=== PATIENT | male | born 1955 | race Caucasian/White ===

== ENCOUNTER 2016-12-21 14:29 | Emergency (ER) | payer MEDICARE, MEDICAID ==
--- NOTE | 2016-12-21 14:51 | C.PDOC ---
History Of Present Illness Patient is a 61 year old male who presents to the ER with a complaint of decreased appetite, subjective fever/chills and malaise for the past month. Patient reports she had a liver transplant in 2008; she has been compliant with her medication and denies any complications with the transplant. Patient also reports to having symptoms of vomiting(unknown if bilious) and generalized abdominal pain. Patient states she has been self detoxing from oxycontin for the past 5 days but notes symptoms started prior to detox. Patient has a Hx of chronic lower back problems and myalgias; SHx of multi abdominal hernia repair, brain tumor and liver transplant. Denies fever, chills or distention at this moment. GO DECR APPETITE, SUBJ FEVER CHILLS, MALAISE X 1 MO. HO LIVER TRANSPLANT 2008, COMPLIANT W MEDS, STATES HAS BEEN DOING WELL W TRANSPLANT. +VOMIT, UNK IF BILIOUS. CURRENTLY W CHRONIC LBP, MYALGIA. IS SELF DETOXING FROM OXYCONTIN X 5 DAYS BUT STATES SX HAVE STARTED PRIOR TO DETOX. +GEN ABD PAIN. DENIES DISTENTION. +NORMAL URINE OUTPUT. NO FEVER. PSH MULT ABD HERNIA REPAIR, BRAIN TUMOR, LIVER TRANSPLANT. EXAM MOD DIST MILD TOX HEENT ANICTERIC; MM DRY; LEGALLY BLIND LUNGS CTA B/L NO W/R/R CV RRR ABD GEN TEND SOFT NO R/G SKIN NO JAUNDICE, WARM DRY NEURO AO3, NO GROSS FOCAL DEF MDM ABD PAIN, DECR APPETITE W VOMITING HO LIVER TRANSPLANT. RO ACUTE ABD VS NARCOTIC WITHDRAWAL VS SEPSIS. NO S/S ACUTE LIVER FAILURE @ THIS TIME. Time Seen by Provider: 12/21/16 14:31 History Per: Patient History/Exam Limitations: no limitations Onset/Duration Of Symptoms: Days (1 month) Current Symptoms Are (Timing): Still Present Recent travel outside of the [place]: No Past Medical History Reviewed: Historical Data, Nursing Documentation, Vital Signs Vital Signs: Last Vital Signs Temp 97.9 F 12/21/16 14:43 Pulse 78 12/21/16 17:00 Resp 18 12/21/16 17:00 BP 120/87 12/21/16 17:00 Pulse Ox 98 12/21/16 17:00 - Medical History PMH: Back Problems, Depression Other Surgeries: Multiabdominal hernia repair, liver transplant, brain tumor Family History: States: Unknown Family Hx - Social History Hx Tobacco Use: No Hx Alcohol Use: No Hx Substance Use: Yes Review Of Systems Except As Marked, All Systems Reviewed And Found Negative. Constitutional: Positive for: Malaise. Negative for: Fever, Chills Gastrointestinal: Positive for: Vomiting, Abdominal Pain Physical Exam - Physical Exam Appears: Non-toxic, Other (Moderate) Skin: Warm, Dry, Jaundice Head: Atraumatic, Normacephalic Eye(s): bilateral: Other (Anicteric, legally blind) Oral Mucosa: Dry Chest: Symmetrical, No Tenderness Cardiovascular: Rhythm Regular, No Murmur Respiratory: Normal Breath Sounds, No Rales, No Rhonchi, No Wheezing Gastrointestinal/Abdominal: Soft, Tenderness (Generalized), No Guarding, No Rebound Neurological/Psych: Oriented x3, Normal Speech, Normal Cognition, Other (No gross focal deficits) ED Course And Treatment - Laboratory Results Result Diagrams: 12/21/16 15:55 12/21/16 15:55 ECG: Interpreted By Me, Viewed By Me ECG Rhythm: Sinus Rhythm Interpretation Of EC - Radiology CXR: Interpreted by Me, Viewed By Me CXR Interpretation: Yes: No Acute Disease Progress Note: CT abd/pel w/ PO & IV contrast, EKG, blood work, CXR and urinalysis ordered. Zofran, potassium and IV fluids administered. Progress - Re-Evaluation Re-evaluation Note: 12/21/16 17:22 PERSIST NAUSEA. LIMITED PO CONTRAST. CT PENDING. VSS 12/21/16 18:44 EXAM IMPROVED COMPARED TO PRIOR. VSS. PENDING CT. - Data Reviewed Data Reviewed: Lab, Diagnostic imaging, EKG, Old records - Critical Care Citical Care: Excluding Proc Time Critical Care Time: 120 minutes - Continuity of Care Discussed patient case with:: Patient, Family-HIPPA compliant Medical Decision Making Medical Decision Making: MDM ABD PAIN, DECR APPETITE W VOMITING HO LIVER TRANSPLANT. RO ACUTE ABD VS NARCOTIC WITHDRAWAL VS SEPSIS. NO S/S ACUTE LIVER FAILURE @ THIS TIME. Disposition - Disposition Disposition Time: 19:00 Condition: STABLE - Clinical Impression Clinical Impression: Narcotic withdrawal, Chronic pain, Abdominal pain, Malaise, Hx of liver transplant - Scribe Statement The provider has reviewed the documentation as recorded by the Scribe Provider Attestation: Jose Corona All medical record entries made by the Scribe were at my direction and personally dictated by me. I have reviewed the chart and agree that the record accurately reflects my personal performance of the history, physical exam, medical decision making, and the department course for this patient. I have also personally directed, reviewed, and agree with the discharge instructions and disposition. Physician Patient Turnover Patient Signed Over To: Kalyani Gonsalez Handoff Comments: ELISA CRAIG
[2016-12-21] MEDS ORDERED: Iohexol 240 (50 ml) PO STA (14:54)
[2016-12-21] MEDS ORDERED: Sodium Chloride 0.9% 1,000 ML IV ONE (14:54)
[2016-12-21] MEDS ORDERED: Sodium Chloride 0.9% 1,000 ML ONE (15:13)
[2016-12-21 15:51] LABS: VENOUS BLOOD GAS BASE EXCESS -8.6 mmol/L (0.0-2.0); VENOUS BLOOD GAS PCO2 22 mmHg (40-60); VENOUS BLOOD PH 7.41 (7.32-7.43)
[2016-12-21 15:59] LABS: BASO % 0.1 % (0.0-2.0); EOS % 0.1 % (0.0-4.0); HEMATOCRIT 40.9 % (35.0-51.0); LYMPH # 1.3 K/uL (1.0-4.3); MEAN CELL VOLUME 81.5 fL (80.0-94.0); MEAN CORPUSCULAR HEMOGLOBIN 27.2 pg (27.0-31.0); MEAN CORPUSCULAR HGB CONC 33.4 g/dL (33.0-37.0); MEAN PLATELET VOLUME 6.6 fL (7.2-11.7); MONO # 0.4 K/uL (0.0-0.8); MONO % 5.2 % (0.0-10.0); NRBC % 0.1 % (0.0-2.0); RED CELL DISTRIBUTION WIDTH 14.9 % (11.5-14.5); WHITE BLOOD COUNT 7.4 K/uL (4.8-10.8)
[2016-12-21] MEDS ORDERED: Iohexol 240 (50 ml) PO ONE (16:00)
[2016-12-21] MEDS ORDERED: Iohexol 240 (50 ml) ONE (16:02)
[2016-12-21 16:08] LABS: INR 1.1
[2016-12-21] MEDS ORDERED: Iodixanol 320 MG/ML 100 ML BOTTLE IV ONE (16:18)
[2016-12-21 17:01] LABS: CHLORIDE 100 mmol/L (98-107); SODIUM 134 mmol/L (132-148)
[2016-12-21 17:02] LABS: POTASSIUM 3.9 mmol/L (3.6-5.2)
[2016-12-21 17:04] LABS: ALB/GLOB RATIO 1.1 (1.0-2.1); ALKALINE PHOSPHATASE 79 U/L (38-126); ALT/SGPT 29 U/L (21-72); AST/SGOT 36 U/L (17-59); BILIRUBIN,TOTAL 0.6 mg/dL (0.2-1.3); BLOOD UREA NITROGEN 12 mg/dL (9-20); CARBON DIOXIDE 25 mmol/L (22-30); GFR AFRICAN-AMERICAN > 60; GLUCOSE,RANDOM 110 mg/dL (75-110); TOTAL PROTEIN 7.3 g/dL (6.3-8.3)
--- NOTE | 2016-12-21 17:14 | RAD ---
PROCEDURE: CHEST RADIOGRAPH, 1 VIEW HISTORY: abd pain HO RENAL TRANSPLANT COMPARISON: 03/19/2012 FINDINGS: LUNGS: Clear. PLEURA: No pneumothorax or pleural fluid seen. CARDIOVASCULAR: Normal. OSSEOUS STRUCTURES: No significant abnormalities. VISUALIZED UPPER ABDOMEN: Normal. OTHER FINDINGS: None. IMPRESSION: No active disease.
[2016-12-21 19:22] VITALS: BP 143/91; PULSE 54; RESP 19; TEMP 97.4; O2SAT 100
--- NOTE | 2016-12-21 19:51 | CT ---
EXAM: CT Abdomen and Pelvis With Intravenous Contrast CLINICAL HISTORY: 61 years old, male; Pain; Abdominal pain; Generalized; Additional info: Abd pain RO obstruct ho liver transplant TECHNIQUE: Axial computed tomography images of the abdomen and pelvis with intravenous contrast. This CT exam was performed using one or more of the following dose reduction techniques: automated exposure control, adjustment of the mA and/or kV according to patient size, and/or use of iterative reconstruction technique. Coronal and sagittal reformatted images were created and reviewed. CONTRAST: 100 mL of visipaque administered intravenously. EXAM DATE/TIME: 12/21/2016 2:55 PM COMPARISON: No relevant prior studies available. FINDINGS: LOWER THORAX: No infiltrate seen in the lung bases. ABDOMEN: LIVER: Fatty infiltration of the liver. GALLBLADDER AND BILE DUCTS: Gallbladder is not seen, and may be contracted or surgically absent. PANCREAS: No CT evidence of acute pancreatitis. SPLEEN: No acute abnormality of the spleen identified. ADRENALS: No acute abnormality of the adrenal glands identified. KIDNEYS AND URETERS: Low density lesion in the left kidney, most likely a cyst. Tiny density lesion in the right kidney, most likely an angiomyolipoma. No acute abnormality of the kidneys identified. STOMACH AND BOWEL: The cecum is high and anterior in location, a normal variant. There is no evidence of volvulus or. Bowel is otherwise unremarkable in appearance. No evidence of bowel obstruction. No evidence of diverticulitis. APPENDIX: Appendix is seen, and is within normal limits in appearance. PELVIS: BLADDER: Mild thickening of the bladder wall. REPRODUCTIVE: No acute abnormality of the reproductive organs is seen. ABDOMEN and PELVIS: INTRAPERITONEAL SPACE: No evidence of free intraperitoneal air or fluid. BONES/JOINTS: Curvilinear areas of sclerosis in the femoral heads bilaterally, highly suspicious for avascular necrosis/osteonecrosis of the hips bilaterally. Scoliosis and multilevel degenerative changes of the spine. No acute fractures or other acute bony abnormality visualized. SOFT TISSUES: Fat-containing inguinal hernia on the left. Laxity of the right anterior abdominal wall musculature, most likely postoperative in etiology, secondary to scarring. No evidence of abdominal wall hernia containing bowel. VASCULATURE: Atherosclerotic calcification. No evidence of abdominal aortic aneurysm or dissection. LYMPH NODES: No evidence of diffuse lymphadenopathy. IMPRESSION: - Mild bladder wall thickening. This is a nonspecific finding, but can be seen with cystitis. Recommend clinical correlation. - Otherwise, no evidence of significant acute process. - Findings highly suspicious for avascular necrosis of the hips bilaterally. This finding can be seen in the setting of multiple underlying conditions, including steroid use and alcohol abuse. - See above for remaining findings.
== END 2016-12-21 20:18 | disposition left against medical advice (07) ==
LOC: C.ER 14:29
DX: R53.81 Other malaise (principal); R10.9 Unspecified abdominal pain; G89.29 Other chronic pain; F19.939 Other psychoactive substance use, unspecified with withdrawal, unspecified; Z94.4 Liver transplant status
CPT/HCPCS: 71010; 74177; 80053; 82803; 82948; 83690; 85025; 85610; 85730; 96361; 96372; 96374; 99285; J2405; J2550; J3480; J7040; Q9966; Q9967

== ENCOUNTER 2018-03-17 10:06 | Emergency (ER) | payer MEDICARE, MEDICAID ==
--- NOTE | 2018-03-17 10:57 | RAD ---
Date of service: 03/17/2018 PROCEDURE: CHEST RADIOGRAPH, 1 VIEW HISTORY: chest pain COMPARISON: 12/21/2016 FINDINGS: LUNGS: Clear. PLEURA: No pneumothorax or pleural fluid seen. CARDIOVASCULAR: Top-normal heart size. No pulmonary venous congestion appreciated. OSSEOUS STRUCTURES: Bilateral sclerotic changes both humeral heads-a superimposed avascular necrosis is a consideration. Similar appearance VISUALIZED UPPER ABDOMEN: Normal. OTHER FINDINGS: None. IMPRESSION: No acute cardiopulmonary pathology. Other findings as above.
[2018-03-17 11:14] LABS: BASO % 0.2 % (0.0-2.0); EOS # 0.1 K/uL (0.0-0.7); EOS % 1.1 % (0.0-4.0); HEMOGLOBIN 13.1 g/dL (12.0-18.0); LYMPH # 2.8 K/uL (1.0-4.3); LYMPH % 34.2 % (20.0-40.0); MEAN CORPUSCULAR HEMOGLOBIN 28.1 pg (27.0-31.0); MEAN CORPUSCULAR HGB CONC 33.4 g/dL (33.0-37.0); MONO # 0.6 K/uL (0.0-0.8); MONO % 7.4 % (0.0-10.0); NEUT # 4.6 K/uL (1.8-7.0); NEUT % 57.1 % (50.0-75.0); RBC 4.67 Mil/uL (4.40-5.90); WHITE BLOOD COUNT 8.1 K/uL (4.8-10.8)
[2018-03-17 11:32] LABS: ALB/GLOB RATIO 1.5 (1.0-2.1); ALBUMIN 4.4 g/dL (3.5-5.0); ALT/SGPT 25 U/L (21-72); AST/SGOT 27 U/L (17-59); BLOOD UREA NITROGEN 14 mg/dL (9-20); CALCIUM 9.5 mg/dl (8.6-10.4); GFR NON-AFRICAN AMERICAN > 60; LIPASE 38 U/L (23-300)
--- NOTE | 2018-03-17 11:49 | C.PDOC ---
History Of Present Illness <Martha Packer - Last Filed: 03/17/18 13:56> <Vince Brumfield - Last Filed: 03/18/18 07:20> 63 y/o male presents to the ER complaining of cough, congestion x 2 days. Patient states that he has history of back pain which he takes oxycondone. 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 He is requesting Oxycodone, he is diaphoretic and states he hasn't had his pain medication x 2 days. NO chest pain, no fever, no chills, no sick contacts at home. (+) hx of liver transplant and blindness. Otherwise, patient denies having fever, chills, SOB, nausea, and vomiting. (Vince Brumfield ) <Martha Packer M - Last Filed: 03/17/18 13:56> History Per: Patient History/Exam Limitations: no limitations Onset/Duration Of Symptoms: Days Current Symptoms Are (Timing): Still Present Severity: Moderate <Vince Brumfield Hanna - Last Filed: 03/18/18 07:20> Time Seen by Provider: 03/17/18 10:13 Chief Complaint (Nursing): Cough, Cold, Congestion Past Medical History - Medical History PMH: Back Problems, Depression, HTN, Hypothyroidism Family History: States: Unknown Family Hx - Social History Hx Tobacco Use: No Hx Alcohol Use: No Hx Substance Use: No - Immunization History Hx Tetanus Toxoid Vaccination: No Hx Influenza Vaccination: No Hx Pneumococcal Vaccination: No <Vince Brumfield M - Last Filed: 03/18/18 07:20> Vital Signs: Last Vital Signs Temp 97.3 F L 03/17/18 13:20 Pulse 74 03/17/18 15:20 Resp 18 03/17/18 15:20 BP 99/64 L 03/17/18 15:20 Pulse Ox 98 03/17/18 15:29 Review Of Systems Except As Marked, All Systems Reviewed And Found Negative. Constitutional: Positive for: Sweats. Negative for: Fever, Chills Cardiovascular: Positive for: Chest Pain Respiratory: Positive for: Cough. Negative for: Shortness of Breath <Vince Brumfield - Last Filed: 03/18/18 07:20> Physical Exam - Physical Exam Appears: Non-toxic, No Acute Distress Skin: Normal Color, Warm, Diaphoretic Head: Atraumatic, Normacephalic, Other (well healed sugical scar ) Eye(s): bilateral: Normal Inspection (blindness ) Nose: Normal Oral Mucosa: Moist Neck: Supple Chest: Symmetrical Cardiovascular: Rhythm Regular Respiratory: Normal Breath Sounds, No Rales, No Rhonchi, No Wheezing Gastrointestinal/Abdominal: Normal Exam, Soft, No Tenderness, No Guarding, No Rebound, Other (well healed surgical scar (+) nt, nd (+) bs ) Neurological/Psych: Oriented x3, Normal Speech <Vince Brumfield - Last Filed: 03/18/18 07:20> ED Course And Treatment - Laboratory Results Result Diagrams: 03/17/18 11:03/17/18 11:09 <Martha Packer M - Last Filed: 03/17/18 13:56> - Laboratory Results Result Diagrams: 03/17/18 11:09 03/17/18 11:09 ECG: Interpreted By Me, Viewed By Me ECG Rhythm: Sinus Rhythm Interpretation Of ECG: NSR with normal intervals, normal axises, and non specific ST/ T wave abnormalities Rate From EC O2 Sat by Pulse Oximetry: 98 (RA) Pulse Ox Interpretation: Normal <Vicne Brumfield - Last Filed: 03/18/18 07:20> Medical Decision Making <Martha Packer M - Last Filed: 03/17/18 13:56> <Vince Brumfield - Last Filed: 03/18/18 07:20> Medical Decision Making: Assessment: Chest Pain, Drug Withdrawal Plan: --Labs --UA --CXR --Pepcid IV --Toradol IV --Zofran IV 1526 - patient states improvement after breathing treatments, patient bp dropped after clonidine however withdrawal symptoms better, labs reviewed and cxr reviewed, will discharge patient home to follow up with magi mcfadden 2 days ( Vince Brumfield) Disposition <Martha Packer - Last Filed: 03/17/18 13:56> Counseled Patient/Family Regarding: Studies Performed, Diagnosis, Need For Followup, Rx Given - Disposition Disposition Time: 15:27 <Vince Brumfield - Last Filed: 03/18/18 07:20> - Disposition Referrals: Betito,Saquiba, MD [Medical Doctor] - Disposition: HOME/ ROUTINE Condition: STABLE Additional Instructions: follow up with your doctor within 2 days call to make an appointment take medications as prescribed return to ER if symptoms worsens or progress Prescriptions: Albuterol HFA [Ventolin HFA 90 mcg/actuation (8 g)] 2 puff IH [id number] #1 puff Azithromycin [Zithromax] 250 mg PO DAILY #4 tab Hydrocodone/Chlorpheniramine [Tussionex] 5 ml PO QPM #80 ml Instructions: Acute Bronchitis Forms: [facility] ([place]), General Discharge Instructions - Clinical Impression Clinical Impression: Bronchitis <Martha Packer - Last Filed: 03/17/18 13:56> - Scribe Statement The provider has reviewed the documentation as recorded by the Scribe <Vince Brumfield - Last Filed: 03/18/18 07:20> - Scribe Statement Bin Parker (Vince Brumfield) Provider Attestation: All medical record entries made by the Scribe were at my direction and personally dictated by me. I have reviewed the chart and agree that the record accurately reflects my personal performance of the history, physical exam, medical decision making, and the department course for this patient. I have also personally directed, reviewed, and agree with the discharge instructions and disposition. (Vince Brumfield) Addendum <Martha Packer - Last Filed: 03/17/18 13:56> <Vince Brumfield - Last Filed: 03/18/18 07:20> Addendum: 03/17/18 13:56 Patient seen briefly by me, patient c/o chest congestion, thickened mucus in his esophagus, difficulty swallowing water at times, cough, no SOB. Patient's EKG NSR, no ST elevations, CXR no acute pathology chest clear will give a neb Patent a liver transplant patient, blind, will follow up with his transplant team in 3 days for further workup. (Martha Packer)
[2018-03-17 13:21] VITALS: TEMP 97.3
[2018-03-17 13:46] LABS: SQUAMOUS EPITHIAL < 1 /hpf (0-5); URINE BILIRUBIN NEGATIVE (NEGATIVE); URINE BLOOD NEGATIVE (NEGATIVE); URINE CLARITY Clear (Clear); URINE COLOR Yellow (YELLOW); URINE GLUCOSE (UA) NORMAL (Normal); URINE HYALINE CAST 0-2 /lpf (0-2); URINE LEUKOCYTE ESTERASE NEG Leu/uL (Negative); URINE PROTEIN 1+ mg/dL (NEGATIVE); URINE UROBILINOGEN NORMAL mg/dL (0.2-1.0)
[2018-03-17 14:02] LABS: BARBITURATES, UR NEGATIVE (NEGATIVE); BENZODIAZEPINES, UR NEGATIVE (NEGATIVE); PHENCYCLIDINE, UR NEGATIVE (NEGATIVE)
[2018-03-17 14:33] LABS: OPIATES, UR POSITIVE (NEGATIVE)
[2018-03-17] MEDS ORDERED: Sodium Chloride 0.9% 500 ML IV ONE ×2 (14:37→14:47)
[2018-03-17] MEDS ORDERED: Albuterol-Ipratrop 3 mg / 0.5 (3 ml) UD ONE (14:42)
[2018-03-17] MEDS: Albuterol 0.083% Inhal Sol (2.5 mg/3 mL) UD INH SCH (14:47)
[2018-03-17 15:22] VITALS: O2SAT 98
[2018-03-17 15:35] VITALS: BP 99/64; PULSE 74; RESP 18
--- NOTE | 2018-03-19 07:05 | CARD ---
APPROVED REPORT Date of service: 03/17/2018 EKG Measurement Heart [id number] VT 152P20 [id number] <Conclusion> Normal sinus rhythm with sinus arrhythmia Normal ECG
== END 2018-03-17 15:45 | disposition home or self-care (01) ==
LOC: C.ER 10:06
DX: J40 Bronchitis, not specified as acute or chronic (principal); I10 Essential (primary) hypertension; E03.9 Hypothyroidism, unspecified
CPT/HCPCS: 71045; 80053; 81001; 83690; 83735; 84484; 85025; 93005; 94640; 96374; 96375; 99285; G0480; J1885; J2405; J7040

== ENCOUNTER 2018-08-13 16:21 | Emergency (ER) | payer MEDICARE, MEDICAID ==
[2018-08-13 16:21] VITALS: BMI 26.6
--- NOTE | 2018-08-13 17:44 | C.PDOC ---
History Of Present Illness 63 year old male presents to the ED for evaluation of headache x 1 day. Patient has chronic history of back pain and has been prescribed Oxycodone by his pain management doctor whch he was represcribed today. Patient states he recently had three strokes and is concerned that that Oxycodone that he took today will cause him to have another stroke. He denies any drooling, facial droop, motor weakness, numbness. Patient was evaluated by his pain management doctor earlier today and given Toradol in office. Patient denies extremity numbness/weakness, slurred speech, or drooling at this time. PMD: Dr. Cisse Time Seen by Provider: 08/13/18 16:54 Chief Complaint (Nursing): Back Pain History Per: Patient History/Exam Limitations: no limitations Onset/Duration Of Symptoms: Days Current Symptoms Are (Timing): Still Present Quality Of Discomfort: "Pain" Previous Symptoms: Back Pain (chronic ) Associated Symptoms: denies: New Weakness, New Numbness Additional History Per: Patient Past Medical History Reviewed: Historical Data, Nursing Documentation, Vital Signs Vital Signs: Last Vital Signs Temp 98.3 F 08/13/18 16:58 Pulse 85 08/13/18 16:58 Resp 18 08/13/18 16:58 BP 146/91 H 08/13/18 16:58 Pulse Ox 99 08/13/18 16:58 - Medical History PMH: Back Problems, Depression, HTN, Hypothyroidism Surgical History: No Surg Hx Family History: States: Unknown Family Hx - Social History Hx Tobacco Use: No Hx Alcohol Use: No Hx Substance Use: No - Immunization History Hx Tetanus Toxoid Vaccination: No Hx Influenza Vaccination: No Hx Pneumococcal Vaccination: No Review Of Systems Constitutional: Negative for: Fever Cardiovascular: Negative for: Chest Pain Musculoskeletal: Positive for: Back Pain (chronic ), Other (generalized body aches) Neurological: Positive for: Headache. Negative for: Weakness, Numbness, Change in Speech, Confusion, Altered Mental Status, Other (drooling ) Physical Exam - Physical Exam Additional Physical Exam Comments: Constitutional: No acute distress. Head: Normocephalic. Atraumatic. Eyes: Legally blind. ENT: Moist mucous membranes. Neck: Supple. Cardiovascular: Regular rate. Radial pulse 2+ bilaterally. Chest: No tenderness. Respiratory: Clear to auscultation bilaterally. GI: Soft. Nontender. Nondistended. Back: No CVA tenderness. Musculoskeletal: No tenderness or swelling of extremities. Skin: No rash. Neurologic: Oriented x 3. Sensation to light touch intact bilaterally. Motor 5/5 x 4. No facial droop noted. ED Course And Treatment O2 Sat by Pulse Oximetry: 99 (on RA) Pulse Ox Interpretation: Normal Medical Decision Making Medical Decision Making: Progress: CT Head ordered and reviewed. CT HEAD IMPRESSION: 1. 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 No significant interval change. An MRI of the brain without and with intravenous contrast is recommended for further evaluation. 2. Redemonstration of cystic encephalomalacia in the right subcortical frontal lobe and parieto-occipital watershed territory, sequela of remote MCA and MCA DIRECTOR OF REIMBURSEMENT territory insults. Patient discharged, f/u PMD, return to ED for worsening pain, vomiting, numbness, motor weakness, or any other problem. Disposition - Disposition Disposition: HOME/ ROUTINE Disposition Time: 18:53 Condition: STABLE Instructions: Headache, Adult Forms: [facility] ([place]) - Clinical Impression Clinical Impression: Chronic pain, Headache - Scribe Statement The provider has reviewed the documentation as recorded by the Scribe (Elma Arriaga) Provider Attestation: All medical record entries made by the Scribe were at my direction and personally dictated by me. I have reviewed the chart and agree that the record accurately reflects my personal performance of the history, physical exam, medical decision making, and the department course for this patient. I have also personally directed, reviewed, and agree with the discharge instructions and disposition.
--- NOTE | 2018-08-13 18:48 | CT ---
Date of service: 08/13/2018 PROCEDURE: CT HEAD WITHOUT CONTRAST. HISTORY: headache COMPARISON: 09/23/2011. TECHNIQUE: Axial computed tomography images were obtained through the head/brain without intravenous contrast. Radiation dose: Total exam DLP = 1141.21 mGy-cm. This CT exam was performed using one or more of the following dose reduction techniques: Automated exposure control, adjustment of the mA and/or kV according to patient size, and/or use of iterative reconstruction technique. FINDINGS: HEMORRHAGE: No intracranial hemorrhage. BRAIN: There is redemonstration of approximately 4.0 x 4.8 x 4.7 cm predominantly cystic mass with coarse peripheral calcification in the sella with expansion of the sella and with suprasellar extension predominantly in the right suprasellar cistern, not significantly change in size and morphology since the prior examination. There is redemonstration of subcortical cystic encephalomalacia in the right frontal lobe and at the right parieto-occipital watershed territory. VENTRICLES: There is mild age-related global parenchymal volume loss and proportionate enlargement of the ventricles and cortical sulci. CALVARIUM: Postsurgical changes of right frontal and temporal craniotomy. PARANASAL SINUSES: Predominantly clear. MASTOID AIR CELLS: Predominantly clear. OTHER FINDINGS: None. IMPRESSION: 1. 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 No significant interval change. An MRI of the brain without and with intravenous contrast is recommended for further evaluation. 2. Redemonstration of cystic encephalomalacia in the right subcortical frontal lobe and parieto-occipital watershed territory, sequela of remote MCA and MCA FUND DIRECTOR territory insults.
[2018-08-13 19:37] VITALS: PULSE 86; TEMP 98.2
[2018-08-13] MEDS ORDERED: Oxycodone/Acetaminophen 5/325 mg Tab PO STA (19:45)
[2018-08-13] MEDS ORDERED: Oxycodone/Acetaminophen 5/325 mg Tab ONE (19:59)
[2018-08-13 20:01] VITALS: BP 153/91; RESP 16; O2SAT 97
== END 2018-08-13 20:02 | disposition home or self-care (01) ==
LOC: C.ER 16:21
DX: G89.29 Other chronic pain (principal); R51 Headache; E03.9 Hypothyroidism, unspecified; I10 Essential (primary) hypertension

== ENCOUNTER 2018-08-20 10:12 | Inpatient (IN) | payer MEDICARE, MEDICAID ==
[2018-08-20 10:12] VITALS: BMI 26.6
--- NOTE | 2018-08-20 10:35 | C.PDOC ---
History Of Present Illness 63 year old male presents to the ED for evaluation of feeling general weak with leg swelling x 3 days. Reports subjective fever and body aches. He denies any drooling, facial droop, motor weakness, numbness, chest pain. PMD: Dr. Cisse Time Seen by Provider: 08/20/18 10:26 Chief Complaint (Nursing): Flu-like Symptoms Past Medical History Vital Signs: Last Vital Signs Temp 98.3 F 08/20/18 10:24 Pulse 77 08/20/18 10:24 Resp 20 08/20/18 10:24 BP 142/82 08/20/18 10:24 Pulse Ox 100 08/20/18 10:24 - Medical History PMH: Back Problems, Depression, HTN, Hypothyroidism Family History: States: Unknown Family Hx - Social History Hx Tobacco Use: No Hx Alcohol Use: No Hx Substance Use: No - Immunization History Hx Tetanus Toxoid Vaccination: No Hx Influenza Vaccination: No Hx Pneumococcal Vaccination: No Review Of Systems Except As Marked, All Systems Reviewed And Found Negative. Constitutional: Negative for: Fever Cardiovascular: Negative for: Chest Pain Physical Exam - Physical Exam Additional Physical Exam Comments: Gen: NAD Head: Atraumatic Eyes: PERRL ENT: MMM, white plaques on tongue Neck: Supple Chest: No tenderness CV: REgular rate Lungs: CTA b/l Abd: Soft, NT Back: No CVA tenderness SKin: No rash Extremities: Lower leg edema Neuro: Alert ED Course And Treatment - Laboratory Results Result Diagrams: 08/20/18 11:09 08/20/18 11:09 O2 Sat by Pulse Oximetry: 100 Medical Decision Making Medical Decision Making: CXR Results Date of service: 08/20/2018 HISTORY: gen weakness, thinks maybe swallowed teeth COMPARISON: 03/17/2018 FINDINGS: LUNGS: The lungs are well inflated and clear. There is linear atelectasis/scarring in the left lower lobe. PLEURA: No pleural effusions or pneumothorax. CARDIOVASCULAR: The heart is normal in size. No aortic atherosclerotic calcifications present. OSSEOUS STRUCTURES: Within normal limits for the patient's age. VISUALIZED UPPER ABDOMEN: Normal. OTHER FINDINGS: None. IMPRESSION: No active pulmonary disease. EKG NSR 60 bpm, no ST/T wave changes. Dr. Arriaga accepts patient to his service. Disposition - Disposition Disposition: HOSPITALIZED Disposition Time: 14:30 Condition: FAIR Forms: [employer] (Faroese) - Clinical Impression Clinical Impression: Influenza-like illness, Elevated brain natriuretic peptide (BNP) level, Acute anemia
[2018-08-20 11:25] LABS: ALB/GLOB RATIO 1.4 (1.0-2.1); ALBUMIN 3.5 g/dL (3.5-5.0); ALT/SGPT 14 U/L (21-72); AST/SGOT 21 U/L (17-59); BASO # 0.1 K/uL (0.0-0.2); BASO % 1.1 % (0.0-2.0); BLOOD UREA NITROGEN 11 mg/dL (9-20); CALCIUM 8.5 mg/dl (8.6-10.4); EOS # 0.2 K/uL (0.0-0.7); EOS % 2.2 % (0.0-4.0); GFR NON-AFRICAN AMERICAN > 60; LYMPH # 2.7 K/uL (1.0-4.3); LYMPH % 37.3 % (20.0-40.0); MEAN CELL VOLUME 85.4 fL (80.0-94.0); MEAN CORPUSCULAR HGB CONC 31.7 g/dL (33.0-37.0); MONO # 0.5 K/uL (0.0-0.8); MONO % 6.9 % (0.0-10.0); NEUT # 3.8 K/uL (1.8-7.0); NEUT % 52.5 % (50.0-75.0); RBC 4.07 Mil/uL (4.40-5.90); RED CELL DISTRIBUTION WIDTH 15.5 % (11.5-14.5); WHITE BLOOD COUNT 7.2 K/uL (4.8-10.8)
--- NOTE | 2018-08-20 11:28 | RAD ---
Date of service: 08/20/2018 HISTORY: gen weakness, thinks maybe swallowed teeth COMPARISON: 03/17/2018 FINDINGS: LUNGS: The lungs are well inflated and clear. There is linear atelectasis/scarring in the left lower lobe. PLEURA: No pleural effusions or pneumothorax. CARDIOVASCULAR: The heart is normal in size. No aortic atherosclerotic calcifications present. OSSEOUS STRUCTURES: Within normal limits for the patient's age. VISUALIZED UPPER ABDOMEN: Normal. OTHER FINDINGS: None. IMPRESSION: No active pulmonary disease.
[2018-08-20 11:29] LABS: PROTHROMBIN TIME 10.9 SECONDS (9.7-12.2)
[2018-08-20 11:34] LABS: B-TYPE NATRIURETIC PEPTIDE 913 pg/mL (0-900)
[2018-08-20 12:34] LABS: SQUAMOUS EPITHIAL < 1 /hpf (0-5); URINE BILIRUBIN NEGATIVE (NEGATIVE); URINE BLOOD NEGATIVE (NEGATIVE); URINE CLARITY Clear (Clear); URINE COLOR Straw (YELLOW); URINE GLUCOSE (UA) NORMAL (Normal); URINE LEUKOCYTE ESTERASE NEG Leu/uL (Negative); URINE PROTEIN NEGATIVE (NEGATIVE); URINE UROBILINOGEN NORMAL mg/dL (0.2-1.0)
[2018-08-20 17:38] VITALS: BP 160/88; PULSE 98; RESP 18; TEMP 98.6; O2SAT 97
--- NOTE | 2018-08-20 18:24 | RAD ---
Date of service: 08/20/2018 HISTORY: Sensation of something sticking in throat COMPARISON: None FINDINGS: No visualized radiopaque foreign body. Cervical spondylotic changes. IMPRESSION: No visible foreign body or other significant/acute pathologic process.
--- NOTE | 2018-08-21 16:56 | CARD ---
APPROVED REPORT Date of service: 08/20/2018 EKG Measurement Heart [id number] HI 136P21 [id number] <Conclusion> Normal sinus rhythm Normal ECG
== END 2018-08-20 19:58 | disposition left against medical advice (07) | DRG 153 ==
LOC: C.ER 10:12 → C.9E 15:02 → C.5S 16:13
PROVIDERS: ADMIT Internal Medicine Nephrology; ATTEND Internal Medicine Nephrology
DX: J11.1 Influenza due to unidentified influenza virus with other respiratory manifestations (principal); I10 Essential (primary) hypertension; E03.9 Hypothyroidism, unspecified; D64.9 Anemia, unspecified